=== PATIENT | male | born 1970 | race Caucasian/White ===

== ENCOUNTER 2018-02-10 19:22 | Emergency (ER) | payer BC ==
[~2018-02-10] VITALS: Ht 175.3 cm; Wt 112.5 kg
[~2018-02-10 19:22] MED LIST: EZET10TA13 PO; LISI10TA5 PO; LURA80TA PO; METF500T6 PO; OLAN10TA3 PO; SIMV40TA5 PO
[2018-02-10] MEDS ORDERED: DEPAKOTE PO (19:46)
--- NOTE | 2018-02-10 20:15 | NUR ---
Patient discharged to home in stable conditon. Written and verbal after care instructions given. Patient verbalizes understanding of instructions. Patient expressed feelings of satiation upon discharge. Patient able to ambulate unassisted with steady gait. Personal left with all personal belongings.
[2018-02-10 20:22] VITALS: BP 138/82
[2018-03-25] MEDS ORDERED: OLAN2.5T3 PO (08:43)
== END 2018-02-10 20:15 | disposition home or self-care (01) ==
LOC: ER 19:24
DX: F20.9 Schizophrenia, unspecified (principal); E11.9 Type 2 diabetes mellitus without complications; F31.9 Bipolar disorder, unspecified; F17.210 Nicotine dependence, cigarettes, uncomplicated; Z88.8 Allergy status to other drugs, medicaments and biological substances; Z79.84 Long term (current) use of oral hypoglycemic drugs; Z79.899 Other long term (current) drug therapy
CPT/HCPCS: A4663

== ENCOUNTER 2018-02-10 22:55 | Emergency (ER) | payer BC ==
[~2018-02-10 22:55] MED LIST changes: +DEPAKOTE PO
--- NOTE | 2018-02-10 23:30 | NUR ---
PT LENY SANTO 909 FROM [facility] WHEN SOMEONE CALLED 911 BECAUSE PT WAS WALKING AROUND CARRYING SHOES.SPOKE WITH PT ON ARRIVAL AND HE TOLD ME HE WAS LOOKING FOR FOOD AND SOMETHING TO DRINK.PT PLACED IN WR.
--- NOTE | 2018-02-11 00:05 | NUR ---
WENT TO WR PT WAS OUTSIDE WALKING AROUND.WILL TRY AGAIN.
--- NOTE | 2018-02-11 00:20 | NUR ---
CALLED FOR PT NO ANSWER
--- NOTE | 2018-02-11 00:30 | NUR ---
CALLED FOR PT NO ANSWER.CHECKED OUTSIDE AND DID NOT SEE PT.LWBT
[2018-03-25] MEDS ORDERED: OLAN2.5T3 PO (08:43)
== END 2018-02-11 00:47 | disposition left against medical advice (07) ==
LOC: ER 22:58
DX: Z53.21 Procedure and treatment not carried out due to patient leaving prior to being seen by health care provider (principal)

== ENCOUNTER 2018-07-29 05:13 | Emergency (ER) | payer BC, MEDICAID ==
[~2018-07-29] VITALS: Ht 180.3 cm; Wt 113.4 kg
[~2018-07-29 05:13] MED LIST changes: -EZET10TA13 PO; -LISI10TA5 PO; +METF-440 PO; -METF500T6 PO; -OLAN10TA3 PO; +OLAN2.5T3 PO; -SIMV40TA5 PO
[2018-07-29 05:36] LABS: BASOPHILS % (AUTO) 0.3 % (0.0-2.0); EOSINOPHILS # (AUTO) 0.1 K/uL (0.0-0.7); EOSINOPHILS % (AUTO) 0.9 % (0.0-7.0); HEMOGLOBIN 16.2 g/dL (12.5-16.3); LYMPHOCYTES # (AUTO) 2.5 K/uL (20.0-40.0); LYMPHOCYTES % (AUTO) 25.7 % (20.5-51.5); MEAN CORPUSCULAR HEMOGLOBIN 31.6 uug (23.8-33.4); MEAN CORPUSCULAR HGB CONC 36 g/dL (32.5-36.3); MEAN CORPUSCULAR VOLUME 87.5 fL (73.0-96.2); MONOCYTES # (AUTO) 0.6 K/uL (2.0-10.0); MONOCYTES % (AUTO) 5.7 % (0.0-11.0); NEUTROPHILS # (AUTO) 6.6 K/uL (1.8-8.9); NEUTROPHILS % (AUTO) 67.4 % (38.5-71.5); PLATELET COUNT (AUTO) 288 K/uL (152-348); RED BLOOD CELL COUNT(AUTO) 5.14 MIL/uL (4.06-5.63); WHITE BLOOD COUNT (AUTO) 9.7 K/uL (3.6-10.2)
--- NOTE | 2018-07-29 05:37 | NUR ---
PT BIB [facility]. PT A/OXO, RESPONSIVE TO VERBAL AND TACTILE STIMULI. PT IS HYPERVERBAL, FLIGHT OF IDEAS, WORD SALAD. PT IS VERBALLY AGGRESSIVE. PT DENIES PAIN, C/P, SOB, N/V/D, DIZZINESS, HEADACHE. PT SELF-AMBULATES WITHOUT DIFFICULTY. PER LICENSE AND PERMIT SPECIALIST, [facility] WAS CALLED BY A BYSTANDER BECAUSE PT WAS SEEN ON THE STREET TALKING TO SELF. PT IN BED, BED IN LOW AND LOCKED POSITION WITH BILATERAL SIDERAILS UP.
--- NOTE | 2018-07-29 05:54 | NUR ---
PT IS VERBALLY AND PHYSICALLY AGGRESSIVE. PT REFUSES TO RETURN TO ROOM, CONTINUES TO BE AGGRESSIVE TOWARDS STAFF. PT REORIENTED TO UNIT AND SAFETY RULES.
[2018-07-29 05:59] LABS: ALANINE AMINOTRANSFERASE 31 U/L (16-63); ALKALINE PHOSPHATASE 67 U/L (50-136); ASPARTATE AMINOTRANSFERASE 20 U/L (15-37); BILIRUBIN,DIRECT 0.2 mg/dL (0.0-0.2); BILIRUBIN,TOTAL 0.9 mg/dL (0.2-1.0); CARBON DIOXIDE 24 mmol/L (21-32); CHLORIDE 96 mmol/L (98-107); GLUCOSE 156 mg/dL (74-106); POTASSIUM 3.5 mmol/L (3.5-5.1); TOTAL PROTEIN, SERUM 8.4 g/dL (6.4-8.2); UREA NITROGEN, BLOOD 8 mg/dL (7-18)
[2018-07-29 06:02] LABS: ETHANOL < 3 MG/DL (0-0)
--- NOTE | 2018-07-29 06:17 | NUR ---
PT REFUSES VS CHECK.
--- NOTE | 2018-07-29 06:20 | NUR ---
PT SLEEPING IN BED AT THIS TIME.
--- NOTE | 2018-07-29 06:55 | NUR ---
XRAY AT BEDSIDE.
--- NOTE | 2018-07-29 06:55 | NUR ---
SHIFT REPORT GIVEN TO SIMA KRISHNA.
--- NOTE | 2018-07-29 07:10 | NUR ---
Recieved pt in bed, very lethergic and not easily arousable. When questioned asked, mumbles.
--- NOTE | 2018-07-29 07:33 | NUR ---
Patient is resting comfortably in bed with eyes closed, NAD.
--- NOTE | 2018-07-29 07:52 | NUR ---
Provided breakfast, but pt remaines very sleepy.
--- NOTE | 2018-07-29 09:55 | NUR ---
Pt is awake A/O x2 at this time. Pt walk to bathroom w/ steady gait, but states "I forgot to give you urine."
--- NOTE | 2018-07-29 10:20 | NUR ---
Pt is loud and start to yell at staff. Nursing assembly room supervisor was notified. real estate officer at the room for pt/staff security.
--- NOTE | 2018-07-29 10:30 | NUR ---
Deyvi Clarke from [facility] called for Psych eval. ETA 1 hour.
--- NOTE | 2018-07-29 10:49 | NUR ---
Pt remaines talkative but not loud. department of natural resources officer at the bedside.
[2018-07-29] MEDS ORDERED: OLANZAPINE 5 MG TABLET PO ONE ×2 (11:00→12:00)
[2018-07-29] MEDS ORDERED: OLANZAPINE 5 MG TABLET ONE (11:02)
--- NOTE | 2018-07-29 11:02 | NUR ---
Pt continues to have disorganized talking and yelling at times. Security at the bedside for pt and staff safety.
--- NOTE | 2018-07-29 11:50 | NUR ---
Deyvi Clarke from [facility] at the bedside for psych eval.
--- NOTE | 2018-07-29 11:51 | NUR ---
Pt refused to give urine for 2nd time today.
--- NOTE | 2018-07-29 12:13 | NUR ---
Norma pacheco was called for pt's aggressive/behavior, inspite all the comfort/distractive measures taken.
[2018-07-29] MEDS ORDERED: HALOPERIDOL LACTATE 5 MG/1 ML VIAL ONE (12:14)
[2018-07-29] MEDS ORDERED: LORAZEPAM 2 MG/1 ML VIAL ONE (12:15)
[2018-07-29] MEDS ORDERED: HALOPERIDOL LACTATE 5 MG/1 ML VIAL IM ONE (12:15)
[2018-07-29] MEDS ORDERED: LORAZEPAM 2 MG/1 ML VIAL IM ONE (12:15)
--- NOTE | 2018-07-29 12:50 | NUR ---
Patient is resting comfortably in bed with eyes closed, NAD.
--- NOTE | 2018-07-29 13:10 | NUR ---
Pt ate lunch, no c/o pain. sleeping calmy at this time.
--- NOTE | 2018-07-29 14:59 | NUR ---
Patient is resting comfortably in bed with eyes closed, NAD. Awaiting [facility] for bed availibility.
--- NOTE | 2018-07-29 15:45 | NUR ---
TRIP NUMBER [id number] [employer] [id number]. AMBULANCE
--- NOTE | 2018-07-29 16:18 | NUR ---
Report given to Johnathan at [facility]. Pt is sleeping in position of comfort. 1 to 1 sitter at the bedside.
--- NOTE | 2018-07-29 17:29 | NUR ---
Report provided for EMT's. All belongings sent w/ pt. original [id number] hold given to checkroom attendant. Pt left ER in stable condition.
== END 2018-07-29 17:35 | disposition short-term general hospital (02) ==
LOC: ER 05:14
DX: F60.9 Personality disorder, unspecified (principal); E11.9 Type 2 diabetes mellitus without complications; F20.9 Schizophrenia, unspecified; F17.200 Nicotine dependence, unspecified, uncomplicated; F31.9 Bipolar disorder, unspecified; Z88.8 Allergy status to other drugs, medicaments and biological substances
CPT/HCPCS: 36415; 71045; 80048; 80076; 80164; 82962; 85025; 93005; 96372 ×2; 99285; A4663; G0480; J1630; J2060

== ENCOUNTER 2022-09-07 19:10 | Emergency (ER) | payer MEDICAID, OTHER ==
--- NOTE | 2022-09-07 19:45 | NUR ---
PATIENT WAS BIB [facility] FOR C/O HEARING VOICES. DUE TO NO BEDS AVAILABLE IN THE ER AND PATIENT IN THE HALLWAY. PATIENT WAS PLACED IN WAITING. HE DENIES SI OR WANTING TO HURT OTHERS. UNABLE TO TRIAGED PATIENT AT THIS TIME DUE TO A CRITICAL SEPTIC PATIENT ARRIVED PRIOR TO PATIENT ARRIVAL.
--- NOTE | 2022-09-07 20:10 | NUR ---
PATIENT WAS CALLED TO BE TRIAGED BUT WAS NOT PRESENT. PATIENT WAS OBSERVED TO BE GOING IN AND OUT OF WAITING ROOM.
--- NOTE | 2022-09-07 22:00 | NUR ---
PATIENT WAS CALLED TO BE TRIAGED BUT WAS NOT PRESENT IN THE WAITING ROOM OR OUTSIDE OF ER. PATIENT WAS NOT TRIAGED OR SEEN BY ERMD.
== END 2022-09-07 22:00 | disposition left against medical advice (07) ==
LOC: ER 19:12
DX: Z53.21 Procedure and treatment not carried out due to patient leaving prior to being seen by health care provider (principal)

== ENCOUNTER 2023-01-13 16:15 | Emergency (ER) | payer OTHER ==
[~2023-01-13] VITALS: Ht 180.3 cm; Wt 113.4 kg
--- NOTE | 2023-01-13 16:16 | NUR ---
[email or web address], medical screening exam in progress
--- NOTE | 2023-01-13 16:45 | NUR ---
Patient refused accucheck and ran out of ER and said that he will take a bus home.
--- NOTE | 2023-01-13 16:46 | NUR ---
Patient eloped from facility. ER physician notified.
== END 2023-01-13 16:47 | disposition left against medical advice (07) ==
LOC: ER 16:15
DX: F29 Unspecified psychosis not due to a substance or known physiological condition (principal); F20.9 Schizophrenia, unspecified; F31.9 Bipolar disorder, unspecified; E11.8 Type 2 diabetes mellitus with unspecified complications; Z79.84 Long term (current) use of oral hypoglycemic drugs; Z79.899 Other long term (current) drug therapy; F17.210 Nicotine dependence, cigarettes, uncomplicated
CPT/HCPCS: A4663